=== PATIENT | female | born 1990 | race Caucasian/White ===

== ENCOUNTER 2020-03-12 11:23 | Inpatient (IN) | payer OTHER ==
[~2020-03-12] VITALS: Ht 160 cm; Wt 99.4 kg
[2020-03-12] MEDS ORDERED: SODIUM CHLORIDE 0.9% 1,000 ML IVB ONE (12:06)
[2020-03-12] MEDS ORDERED: PANTOPRAZOLE 40 MG/10 ML VIAL INJ IV STA (12:06)
[2020-03-12] MEDS ORDERED: ONDANSETRON HCL 4 MG/2 ML VIAL IV ONE (12:15)
[2020-03-12 13:00] LABS: Basophils # (auto) 0.1 10 ^3/uL (0-0.2); Basophils % (auto) 0.5 % (0.0-2.0); Eosinophils # (auto) 0.1 10 ^3/uL (0-0.8); Eosinophils % (auto) 0.3 % (0.0-7.0); Hematocrit 46.6 % (36.0-46.0); Hemoglobin 15.7 g/dL (12.2-16.2); Lymphocytes # (auto) 1.4 10 ^3/uL (0.4-5.4); Lymphocytes % (auto) 8.9 % (10.0-50.0); Mean Corpuscular Hemoglobin 30.6 pg (28.0-32.0); Mean Corpuscular Hgb Conc. 33.6 g/dL (32.0-36.0); Mean Corpuscular Volume 91.1 fL (80.0-100.0); Monocytes # (auto) 0.6 10 ^3/uL (0-1.3); Monocytes % (auto) 3.8 % (0.0-12.0); Neutrophils # (auto) 14.1 10 ^3/uL (1.6-8.6); Neutrophils % (auto) 86.5 % (37.0-80.0); Platelet Count (auto) 305 10^3/uL (140-450); Red Blood Cells 5.12 10^6/uL (4.0-5.20); Red Cell Distribution Width 14.4 % (11.8-14.3); White Blood Cell 16.3 10^3/uL (4.4-10.8)
[2020-03-12 13:15] LABS: Urine Bacteria MANY /hpf (None Seen); Urine Blood 1+ /uL (Negative); Urine Mucus FEW (None Seen); Urine Specific Gravity 1.018 (1.001-1.035); Urine WBC 775 /hpf (0 - 5)
[2020-03-12 13:17] LABS: Albumin 3.5 g/dL (3.4-5.0); Calcium 9.3 mg/dL (8.5-10.1); Potassium 4.5 mmol/L (3.5-5.1)
[2020-03-12 13:27] LABS: BUN/Creatinine Ratio 9.3; Bilirubin, Total 0.6 mg/dL (0.2-1.0)
[2020-03-12] MEDS ORDERED: HYDROcodone-ACET 5/325MG TAB PO PRN (15:00)
[2020-03-12] MEDS ORDERED: NITROGLYCERIN 0.4 MG SL TAB SL PRN (15:00)
[2020-03-12] MEDS ORDERED: MORPHINE SULF INJ 2 MG/ML SYRINGE 1ML IV PRN (15:00)
[2020-03-12] MEDS: MORPHINE SULF INJ 2 MG/ML SYRINGE 1ML IV PRN ×2 (17:13→21:20)
[2020-03-12] MEDS: D5W/SOD CHL 0.45% 1,000 ML IV SCH (17:13)
[2020-03-12 17:28] LABS: Cholesterol 178 mg/dL (< 200)
[2020-03-12 17:33] LABS: HDL Cholesterol 52 mg/dL (40-59); LDL Cholesterol 113 mg/dL (< 100); Triglycerides 137 mg/dL (< 150)
[2020-03-12 18:01] LABS: Amphetamine Screen, Urine NEGATIVE (NEGATIVE); Barbiturate Scree,Urine NEGATIVE (NEGATIVE); Benzodiazephine Screen, Urine POSITIVE (NEGATIVE); Cocaine Screen, Urine NEGATIVE (NEGATIVE); Opiate Scree,Urine NEGATIVE (NEGATIVE); Phencyclidine Screen, Urine NEGATIVE (NEGATIVE)
[2020-03-12 18:08] LABS: Cannabinoid Screen, Urine POSITIVE (NEGATIVE)
[2020-03-12 18:52] VITALS: BP 143/97
[2020-03-12] MEDS: ONDANSETRON HCL 4 MG/2 ML VIAL IV PRN (20:50)
[2020-03-12 22:00] VITALS: BP 143/101
[2020-03-12] MEDS: ACETAMINOPHEN 325 MG TAB PO PRN (23:07)
[2020-03-13] MEDS: D5W/SOD CHL 0.45% 1,000 ML IV SCH ×2 (00:50→05:42)
[2020-03-13] MEDS: MORPHINE SULF INJ 2 MG/ML SYRINGE 1ML IV PRN ×6 (01:37→22:12)
[2020-03-13 05:57] LABS: Basophils # (auto) 0.1 10 ^3/uL (0-0.2); Basophils % (auto) 0.3 % (0.0-2.0); Eosinophils # (auto) 0 10 ^3/uL (0-0.8); Eosinophils % (auto) 0.1 % (0.0-7.0); Hematocrit 44.5 % (36.0-46.0); Hemoglobin 14.8 g/dL (12.2-16.2); Lymphocytes # (auto) 0.7 10 ^3/uL (0.4-5.4); Lymphocytes % (auto) 3.7 % (10.0-50.0); Mean Corpuscular Hemoglobin 30.7 pg (28.0-32.0); Mean Corpuscular Hgb Conc. 33.3 g/dL (32.0-36.0); Mean Corpuscular Volume 92.2 fL (80.0-100.0); Monocytes # (auto) 0.6 10 ^3/uL (0-1.3); Monocytes % (auto) 3.1 % (0.0-12.0); Neutrophils # (auto) 17.9 10 ^3/uL (1.6-8.6); Neutrophils % (auto) 92.8 % (37.0-80.0); Nucleated Red Blood Cells % 0.4 %; Platelet Count (auto) 245 10^3/uL (140-450); Red Blood Cells 4.82 10^6/uL (4.0-5.20); Red Cell Distribution Width 14.3 % (11.8-14.3); White Blood Cell 19.3 10^3/uL (4.4-10.8)
[2020-03-13 06:00] VITALS: BP 135/94
[2020-03-13 06:09] LABS: INR 1.11 (0.9-1.15); Partial Thromboplastin Time 28.5 sec (23.64-32.05); Potassium 3.9 mmol/L (3.5-5.1)
[2020-03-13 06:14] LABS: Albumin 2.9 g/dL (3.4-5.0); BUN/Creatinine Ratio 12.2; Bilirubin, Total 0.6 mg/dL (0.2-1.0); Calcium 8.5 mg/dL (8.5-10.1); Phosphorus 2.9 mg/dL (2.5-4.90); Total Protein 6.9 g/dL (6.4-8.2)
[2020-03-13 09:00] VITALS: BP 136/101
[2020-03-13] MEDS: ENOXAPARIN SOD 40 MG/0.4 ML SYRINGE SC SCH (09:38)
[2020-03-13] MEDS: PANTOPRAZOLE 40 MG/10 ML VIAL INJ IV SCH (09:38)
[2020-03-13] MEDS ORDERED: MEROPENEM 500MG IVPB 50 ML IV SCH (10:00)
[2020-03-13 13:00] VITALS: BP 132/90
[2020-03-13] MEDS: LACTATED RINGER'S 1,000 ML IV SCH (16:15)
[2020-03-13 17:00] VITALS: BP 149/96
[2020-03-13] MEDS: LORazepam 0.5 MG TAB PO PRN (21:09)
[2020-03-13] MEDS: cefTRIAXone 1GM/50ML D5W 50 ML IV SCH (21:09)
[2020-03-13] MEDS: DOCUSATE SOD 100 MG CAP PO PRN (21:09)
[2020-03-13 21:58] VITALS: BP 139/89
[2020-03-14] MEDS: MORPHINE SULF INJ 2 MG/ML SYRINGE 1ML IV PRN ×2 (03:02→08:11)
[2020-03-14] MEDS: LACTATED RINGER'S 1,000 ML IV SCH ×3 (03:02→20:59)
[2020-03-14 05:00] VITALS: BP 132/87
[2020-03-14 08:50] VITALS: BP 130/83
[2020-03-14] MEDS: PANTOPRAZOLE 40 MG/10 ML VIAL INJ IV SCH (09:19)
[2020-03-14] MEDS: cefTRIAXone 1GM/50ML D5W 50 ML IV SCH ×2 (09:19→21:00)
[2020-03-14] MEDS: ENOXAPARIN SOD 40 MG/0.4 ML SYRINGE SC SCH (09:20)
[2020-03-14 13:00] VITALS: BP 118/89
[2020-03-14] MEDS: HYDROmorphone HCL 2 MG/ML VL IV PRN ×2 (13:17→20:29)
[2020-03-14 17:00] VITALS: BP 132/90
[2020-03-14 22:00] VITALS: BP 141/87
[2020-03-15] MEDS: ACETAMINOPHEN 325 MG TAB PO PRN (00:37)
[2020-03-15] MEDS: HYDROmorphone HCL 2 MG/ML VL IV PRN ×4 (02:15→21:03)
[2020-03-15 05:00] VITALS: BP 125/84
[2020-03-15 08:51] VITALS: BP 138/97
[2020-03-15] MEDS: cefTRIAXone 1GM/50ML D5W 50 ML IV SCH ×2 (09:59→21:03)
[2020-03-15] MEDS: ENOXAPARIN SOD 40 MG/0.4 ML SYRINGE SC SCH (09:59)
[2020-03-15] MEDS: PANTOPRAZOLE 40 MG/10 ML VIAL INJ IV SCH (09:59)
[2020-03-15] MEDS: LACTATED RINGER'S 1,000 ML IV SCH ×3 (10:00→23:35)
[2020-03-15 12:48] VITALS: BP 144/91
[2020-03-15 13:05] LABS: Basophils # (auto) 0 10 ^3/uL (0-0.2); Basophils % (auto) 0.5 % (0.0-2.0); Eosinophils # (auto) 0.2 10 ^3/uL (0-0.8); Eosinophils % (auto) 1.4 % (0.0-7.0); Hematocrit 39.4 % (36.0-46.0); Hemoglobin 13.2 g/dL (12.2-16.2); Lymphocytes # (auto) 1.1 10 ^3/uL (0.4-5.4); Lymphocytes % (auto) 10.1 % (10.0-50.0); Mean Corpuscular Hemoglobin 30.8 pg (28.0-32.0); Mean Corpuscular Hgb Conc. 33.5 g/dL (32.0-36.0); Mean Corpuscular Volume 91.9 fL (80.0-100.0); Monocytes # (auto) 0.7 10 ^3/uL (0-1.3); Monocytes % (auto) 6.5 % (0.0-12.0); Neutrophils # (auto) 8.9 10 ^3/uL (1.6-8.6); Neutrophils % (auto) 81.5 % (37.0-80.0); Platelet Count (auto) 208 10^3/uL (140-450); Red Blood Cells 4.28 10^6/uL (4.0-5.20); Red Cell Distribution Width 14.3 % (11.8-14.3); White Blood Cell 10.9 10^3/uL (4.4-10.8)
[2020-03-15 13:25] LABS: Albumin 2.2 g/dL (3.4-5.0); Calcium 8.1 mg/dL (8.5-10.1); Potassium 3.8 mmol/L (3.5-5.1)
[2020-03-15 13:28] LABS: BUN/Creatinine Ratio 10.2; Bilirubin, Total 0.6 mg/dL (0.2-1.0); Total Protein 6.5 g/dL (6.4-8.2)
[2020-03-15 16:46] VITALS: BP 139/88
[2020-03-15 22:00] VITALS: BP 135/93
[2020-03-16] VITALS (7 sets, daily range): BP systolic 135–150; BP diastolic 84–92
[2020-03-16] MEDS: HYDROmorphone HCL 2 MG/ML VL IV PRN ×4 (03:02→21:33)
[2020-03-16] MEDS: LACTATED RINGER'S 1,000 ML IV SCH ×4 (06:15→20:11)
[2020-03-16] MEDS: cefTRIAXone 1GM/50ML D5W 50 ML IV SCH ×2 (08:59→21:33)
[2020-03-16] MEDS: PANTOPRAZOLE 40 MG/10 ML VIAL INJ IV SCH (09:00)
[2020-03-16] MEDS: ENOXAPARIN SOD 40 MG/0.4 ML SYRINGE SC SCH (09:00)
[2020-03-17] MEDS: HYDROmorphone HCL 2 MG/ML VL IV PRN ×4 (03:33→19:49)
[2020-03-17] MEDS: ONDANSETRON HCL 4 MG/2 ML VIAL IV PRN ×4 (03:42→19:50)
[2020-03-17 05:12] VITALS: BP 149/94
[2020-03-17] MEDS: LACTATED RINGER'S 1,000 ML IV SCH ×2 (06:00→18:39)
[2020-03-17 09:00] VITALS: BP 136/98
[2020-03-17] MEDS: PANTOPRAZOLE 40 MG/10 ML VIAL INJ IV SCH (09:19)
[2020-03-17] MEDS: cefTRIAXone 1GM/50ML D5W 50 ML IV SCH ×2 (09:19→21:02)
[2020-03-17] MEDS: ENOXAPARIN SOD 40 MG/0.4 ML SYRINGE SC SCH (09:20)
[2020-03-17 13:00] VITALS: BP 142/89
[2020-03-17 17:00] VITALS: BP 143/73
[2020-03-17 20:10] VITALS: BP 125/89
[2020-03-17 22:00] VITALS: BP 125/89
[2020-03-18] MEDS: HYDROmorphone HCL 2 MG/ML VL IV PRN ×5 (01:05→21:27)
[2020-03-18] MEDS: ONDANSETRON HCL 4 MG/2 ML VIAL IV PRN ×5 (01:05→21:28)
[2020-03-18 05:55] VITALS: BP 139/91
[2020-03-18 06:05] LABS: Basophils # (auto) 0.1 10 ^3/uL (0-0.2); Basophils % (auto) 0.5 % (0.0-2.0); Eosinophils # (auto) 0.2 10 ^3/uL (0-0.8); Eosinophils % (auto) 1.5 % (0.0-7.0); Hematocrit 37.8 % (36.0-46.0); Hemoglobin 12.8 g/dL (12.2-16.2); Lymphocytes # (auto) 1.1 10 ^3/uL (0.4-5.4); Lymphocytes % (auto) 9.9 % (10.0-50.0); Mean Corpuscular Hemoglobin 30.9 pg (28.0-32.0); Mean Corpuscular Hgb Conc. 33.7 g/dL (32.0-36.0); Mean Corpuscular Volume 91.6 fL (80.0-100.0); Monocytes # (auto) 0.8 10 ^3/uL (0-1.3); Monocytes % (auto) 7.3 % (0.0-12.0); Neutrophils % (auto) 80.8 % (37.0-80.0); Platelet Count (auto) 290 10^3/uL (140-450); Red Blood Cells 4.13 10^6/uL (4.0-5.20); Red Cell Distribution Width 14.4 % (11.8-14.3); White Blood Cell 11.2 10^3/uL (4.4-10.8)
[2020-03-18] MEDS: LACTATED RINGER'S 1,000 ML IV SCH ×2 (06:31→18:51)
[2020-03-18 06:33] LABS: Albumin 2.3 g/dL (3.4-5.0); Calcium 8.9 mg/dL (8.5-10.1); Potassium 3.6 mmol/L (3.5-5.1)
[2020-03-18 06:35] LABS: BUN/Creatinine Ratio 8.3
[2020-03-18 06:42] LABS: Bilirubin, Total 0.4 mg/dL (0.2-1.0); Total Protein 6.9 g/dL (6.4-8.2)
[2020-03-18 09:00] VITALS: BP 149/91
[2020-03-18] MEDS: PANTOPRAZOLE 40 MG/10 ML VIAL INJ IV SCH (09:22)
[2020-03-18] MEDS: ENOXAPARIN SOD 40 MG/0.4 ML SYRINGE SC SCH (09:22)
[2020-03-18] MEDS: cefTRIAXone 1GM/50ML D5W 50 ML IV SCH (09:22)
[2020-03-18 13:00] VITALS: BP 141/95
[2020-03-18 17:00] VITALS: BP 131/78
[2020-03-18 20:06] VITALS: BP 134/88
[2020-03-18 21:50] VITALS: BP 134/88
[2020-03-19] MEDS: HYDROmorphone HCL 2 MG/ML VL IV PRN ×4 (02:26→22:50)
[2020-03-19] MEDS: ONDANSETRON HCL 4 MG/2 ML VIAL IV PRN ×4 (02:26→22:50)
[2020-03-19] MEDS: LACTATED RINGER'S 1,000 ML IV SCH ×3 (04:42→14:23)
[2020-03-19 05:00] VITALS: BP 146/92
[2020-03-19 05:58] VITALS: BP 146/92
[2020-03-19 09:12] VITALS: BP 141/80
[2020-03-19] MEDS: ENOXAPARIN SOD 40 MG/0.4 ML SYRINGE SC SCH (09:36)
[2020-03-19] MEDS: PANTOPRAZOLE 40 MG/10 ML VIAL INJ IV SCH (09:36)
[2020-03-19] MEDS: ACETAMINOPHEN 325 MG TAB PO PRN (12:24)
[2020-03-19 12:35] VITALS: BP 146/95
[2020-03-19 16:57] VITALS: BP 155/78
[2020-03-19 22:00] VITALS: BP 142/95
[2020-03-19] MEDS: LORazepam 0.5 MG TAB PO PRN (22:50)
[2020-03-20] VITALS (7 sets, daily range): BP systolic 142–156; BP diastolic 95–110
[2020-03-20] MEDS: ALUM & MAG HYDROX-SIMETH LIQ(MAALOX) 30 ML PO PRN (02:25)
[2020-03-20] MEDS: HYDROmorphone HCL 2 MG/ML VL IV PRN ×5 (02:47→21:50)
[2020-03-20] MEDS: LACTATED RINGER'S 1,000 ML IV SCH ×2 (04:10→11:40)
[2020-03-20] MEDS: ENOXAPARIN SOD 40 MG/0.4 ML SYRINGE SC SCH (09:51)
[2020-03-20] MEDS: PANTOPRAZOLE 40 MG/10 ML VIAL INJ IV SCH (09:51)
[2020-03-20] MEDS: DOCUSATE SOD 100 MG CAP PO PRN (21:49)
[2020-03-20] MEDS: LORazepam 0.5 MG TAB PO PRN (21:50)
[2020-03-21] MEDS: LACTATED RINGER'S 1,000 ML IV SCH (00:40)
[2020-03-21] MEDS: HYDROmorphone HCL 2 MG/ML VL IV PRN ×5 (02:12→21:19)
[2020-03-21 05:00] VITALS: BP 150/87
[2020-03-21] MEDS: ONDANSETRON HCL 4 MG/2 ML VIAL IV PRN (06:39)
[2020-03-21 09:11] VITALS: BP 139/97
[2020-03-21] MEDS: PANTOPRAZOLE 40 MG/10 ML VIAL INJ IV SCH (09:22)
[2020-03-21] MEDS: ENOXAPARIN SOD 40 MG/0.4 ML SYRINGE SC SCH (09:22)
[2020-03-21] MEDS: DOCUSATE SOD 100 MG CAP PO PRN (11:50)
[2020-03-21 13:25] VITALS: BP 152/111
[2020-03-21 17:00] VITALS: BP 162/114
[2020-03-21 18:25] VITALS: BP 142/96
[2020-03-21] MEDS: LORazepam 0.5 MG TAB PO PRN (21:19)
[2020-03-21 22:00] VITALS: BP 132/82
[2020-03-22] MEDS: HYDROmorphone HCL 2 MG/ML VL IV PRN ×6 (02:11→23:35)
[2020-03-22] MEDS: ONDANSETRON HCL 4 MG/2 ML VIAL IV PRN ×5 (02:12→23:35)
[2020-03-22 04:51] VITALS: BP 133/109
[2020-03-22] MEDS ORDERED: amLODIPine BESYLATE 5 MG TAB PO ONE (07:45)
[2020-03-22 09:00] VITALS: BP 127/84
[2020-03-22] MEDS: PANTOPRAZOLE 40 MG/10 ML VIAL INJ IV SCH (09:33)
[2020-03-22] MEDS: ENOXAPARIN SOD 40 MG/0.4 ML SYRINGE SC SCH (09:34)
[2020-03-22 13:00] VITALS: BP 132/96
[2020-03-22 17:00] VITALS: BP 137/88
[2020-03-22 22:00] VITALS: BP 135/82
[2020-03-22] MEDS: LORazepam 0.5 MG TAB PO PRN (23:35)
[2020-03-23] MEDS: HYDROmorphone HCL 2 MG/ML VL IV PRN ×5 (03:35→21:44)
[2020-03-23] MEDS: ONDANSETRON HCL 4 MG/2 ML VIAL IV PRN ×5 (03:36→21:43)
[2020-03-23 05:00] VITALS: BP 116/77
[2020-03-23 09:00] VITALS: BP 151/101
[2020-03-23] MEDS: PANTOPRAZOLE 40 MG/10 ML VIAL INJ IV SCH (09:53)
[2020-03-23] MEDS: ENOXAPARIN SOD 40 MG/0.4 ML SYRINGE SC SCH (09:54)
[2020-03-23] MEDS: amLODIPine BESYLATE 5 MG TAB PO SCH (09:54)
[2020-03-23] MEDS: ALUM & MAG HYDROX-SIMETH LIQ(MAALOX) 30 ML PO PRN ×2 (10:02→17:29)
[2020-03-23 17:00] VITALS: BP 136/80
[2020-03-23] MEDS: DOCUSATE SOD 100 MG CAP PO PRN (17:29)
[2020-03-23] MEDS: ACETAMINOPHEN 325 MG TAB PO PRN (19:50)
[2020-03-23 21:40] VITALS: BP 126/89
[2020-03-23 23:24] VITALS: BP 98/77
[2020-03-24] MEDS: ONDANSETRON HCL 4 MG/2 ML VIAL IV PRN ×3 (03:06→12:56)
[2020-03-24] MEDS: HYDROmorphone HCL 2 MG/ML VL IV PRN ×3 (03:07→12:57)
[2020-03-24 05:54] VITALS: BP 113/73
[2020-03-24 06:16] LABS: Basophils # (auto) 0.1 10 ^3/uL (0-0.2); Basophils % (auto) 1.1 % (0.0-2.0); Eosinophils # (auto) 0.3 10 ^3/uL (0-0.8); Eosinophils % (auto) 4.8 % (0.0-7.0); Hematocrit 41.4 % (36.0-46.0); Hemoglobin 13.6 g/dL (12.2-16.2); Lymphocytes # (auto) 1.1 10 ^3/uL (0.4-5.4); Lymphocytes % (auto) 18.9 % (10.0-50.0); Mean Corpuscular Hemoglobin 29.8 pg (28.0-32.0); Mean Corpuscular Hgb Conc. 32.9 g/dL (32.0-36.0); Mean Corpuscular Volume 90.4 fL (80.0-100.0); Monocytes # (auto) 0.4 10 ^3/uL (0-1.3); Monocytes % (auto) 7.1 % (0.0-12.0); Neutrophils # (auto) 4.1 10 ^3/uL (1.6-8.6); Neutrophils % (auto) 68.1 % (37.0-80.0); Nucleated Red Blood Cells % 0.1 %; Platelet Count (auto) 387 10^3/uL (140-450); Red Blood Cells 4.58 10^6/uL (4.0-5.20); Red Cell Distribution Width 14.6 % (11.8-14.3); White Blood Cell 6.1 10^3/uL (4.4-10.8)
[2020-03-24] MEDS: ACETAMINOPHEN 325 MG TAB PO PRN (06:17)
[2020-03-24] MEDS: DOCUSATE SOD 100 MG CAP PO PRN (06:17)
[2020-03-24 06:38] LABS: Albumin 2.6 g/dL (3.4-5.0); BUN/Creatinine Ratio 5.4; Magnesium 2.5 mg/dL (1.6-2.6)
[2020-03-24 06:45] LABS: Bilirubin, Total 0.2 mg/dL (0.2-1.0); Total Protein 7.4 g/dL (6.4-8.2)
[2020-03-24 08:00] VITALS: BP 151/101
[2020-03-24 09:00] VITALS: BP 126/78
[2020-03-24] MEDS: ENOXAPARIN SOD 40 MG/0.4 ML SYRINGE SC SCH (11:35)
[2020-03-24] MEDS: amLODIPine BESYLATE 5 MG TAB PO SCH (11:35)
[2020-03-24] MEDS: PANTOPRAZOLE 40 MG/10 ML VIAL INJ IV SCH (11:35)
[2020-03-24 13:00] VITALS: BP 120/83
[2020-03-24 15:48] VITALS: BP 120/83
== END 2020-03-24 18:00 | disposition home or self-care (01) | DRG 720 ==
LOC: ER 11:23 → TELE 11:24 → TELE-WESTW 18:48
PROVIDERS: ADMIT Hospitalist; ATTEND Internal Medicine
DX: A41.9 Sepsis, unspecified organism (principal); K85.20 Alcohol induced acute pancreatitis without necrosis or infection; F10.239 Alcohol dependence with withdrawal, unspecified; N39.0 Urinary tract infection, site not specified; E66.9 Obesity, unspecified; K29.20 Alcoholic gastritis without bleeding; K70.10 Alcoholic hepatitis without ascites; E87.1 Hypo-osmolality and hyponatremia; I10 Essential (primary) hypertension; E88.09 Other disorders of plasma-protein metabolism, not elsewhere classified; Z90.49 Acquired absence of other specified parts of digestive tract; K86.0 Alcohol-induced chronic pancreatitis; Z71.41 Alcohol abuse counseling and surveillance of alcoholic; Z68.31 Body mass index [BMI] 31.0-31.9, adult
CPT/HCPCS: 36415; 74176; 80053; 80061; 80307; 81001; 81025; 83036; 83690; 83735; 84100; 84484; 85025; 85610; 85730; 87040; 87086; C9113; G0378; J0696; J2185; J2405